=== PATIENT | female | born 1985 | race Caucasian/White ===

== ENCOUNTER 2016-08-28 17:20 | Emergency (ER) | payer OTHER | END 2016-08-28 19:25 | disposition left against medical advice (07) | LOC: D.ER 17:20 | DX: R51 Headache (principal) ==

== ENCOUNTER 2018-08-12 14:17 | Emergency (ER) | payer SELFPAY ==
[~2018-08-12] VITALS: Ht 149.9 cm; Wt 61.4 kg
[2018-08-12 14:38] VITALS: Ht 149.9 cm; Wt 61.4 kg
[2018-08-12 15:49] LABS: APPEARANCE CLEAR (CLEAR); BILIRUBIN NEGATIVE (NEGATIVE); COLOR YELLOW (YELLOW); GLUCOSE NEGATIVE (NEGATIVE); KETONE SMALL mg/dL (NEGATIVE); NITRITE NEGATIVE (NEGATIVE); PROTEIN NEGATIVE (NEGATIVE); UROBILINOGEN NORMAL (NORMAL)
[2018-08-12 15:50] LABS: BACTERIA MODERATE /hpf (NONE SEEN); EPITHELIAL CELLS 0-5 /hpf (0-5); RED CELLS - URINE 0-5 /hpf (0-5); WHITE CELLS - URINE 0-5 /hpf (0-5)
[2018-08-12 15:53] LABS: BASOPHILS 0.1 % (0-2); EOSINOPHILS 1.6 % (0-7); HEMATOCRIT 37.8 % (36.0-48.0); IMMATURE GRANULOCYTES 0.2 % (0-5); LYMPHOCYTES 25.8 % (15-50); MCH 30.1 pg (26.0-34.0); MCHC 34.4 g/dL (31.0-37.0); MCV 87.5 fL (80.0-100.0); MONOCYTES 5.7 % (2-11); NEUTROPHILS 66.6 % (40-80); PLATELET COUNT 244 10x3/uL (130-400); RBC 4.32 10x6/uL (4.00-5.40); RDW 12.8 % (11.5-14.5); WBC 8.7 10x3/uL (4.8-10.8)
[2018-08-12 16:01] LABS: ALBUMIN 3.8 g/dL (3.4-5.0); ALKALINE PHOSPHATASE 50 U/L (46-116); ALT (SGPT) 27 U/L (10-68); BILIRUBIN - TOTAL 0.21 mg/dL (0.2-1.3); CALC OSMOLALITY 272 mosm/kg (275-300); CALCIUM 8.6 mg/dL (8.5-10.1); CARBON DIOXIDE 24.5 mmol/L (21.0-32.0); CHLORIDE - SERUM 103 mmol/L (98-107); CREATININE - SERUM 0.5 mg/dL (0.6-1.3); GLUCOSE 89 mg/dL (74-106); POTASSIUM - SERUM 3.6 mmol/L (3.5-5.1); PROTEIN - SERUM 7.2 g/dL (6.4-8.2); SODIUM 138 mmol/L (136-145); UREA NITROGEN 6 mg/dL (7-18); eGFR NON AFRICAN AMERICAN > 90 mL/min (90-120)
[2018-08-12 16:28] LABS: HCG - QUANTITATIVE (MATERNAL) 124072 mIU/mL
[2018-08-12] MEDS ORDERED: ZOFRAN ODT4 MG/UDTAB PO (17:19)
[2018-08-12 18:01] VITALS: BP 102/67
== END 2018-08-12 18:00 | disposition home or self-care (01) ==
LOC: D.ER 14:17
PROVIDERS: Family Medicine
DX: O26.891 Other specified pregnancy related conditions, first trimester (principal); R10.32 Left lower quadrant pain; R10.31 Right lower quadrant pain; O21.8 Other vomiting complicating pregnancy; Z3A.09 9 weeks gestation of pregnancy

== ENCOUNTER → 2018-10-16 19:24 | Outpatient (CLI) | payer MEDICAID | END | disposition home or self-care (01) | LOC: D.LDO 19:24 | DX: O26.892 Other specified pregnancy related conditions, second trimester (principal); Z3A.18 18 weeks gestation of pregnancy ==

== ENCOUNTER → 2019-02-14 12:22 | Outpatient (CLI) | payer MEDICAID ==
[2018-08-12 14:38] VITALS: BMI 27.3
[~2019-02-14 12:22] MED LIST: BENADRYL25 MG PO; PERCOCET 5-3251 TAB PO; PRENAVITE1 TAB PO; ZOFRAN ODT4 MG/UDTAB PO
[2019-02-14 13:02] LABS: BASOPHILS 0.1 % (0-2); EOSINOPHILS 1.6 % (0-7); HEMATOCRIT 34.8 % (36.0-48.0); HEMOGLOBIN 11.8 g/dL (12-16); IMMATURE GRANULOCYTES 0.3 % (0-5); LYMPHOCYTES 22.1 % (15-50); MCH 29.6 pg (26.0-34.0); MCHC 33.9 g/dL (31.0-37.0); MCV 87.2 fL (80.0-100.0); MEAN PLATELET VOLUME 8.8 fL (7.4-10.4); MONOCYTES 5.1 % (2-11); NEUTROPHILS 70.8 % (40-80); PLATELET COUNT 208 10x3/uL (130-400); RBC 3.99 10x6/uL (4.00-5.40); RDW 13.1 % (11.5-14.5); WBC 7.7 10x3/uL (4.8-10.8)
[2019-02-14 13:14] LABS: APPEARANCE CLEAR (CLEAR); BILIRUBIN NEGATIVE (NEGATIVE); COLOR YELLOW (YELLOW); GLUCOSE NEGATIVE (NEGATIVE); KETONE MODERATE mg/dL (NEGATIVE); NITRITE NEGATIVE (NEGATIVE); PROTEIN NEGATIVE (NEGATIVE); SPECIFIC GRAVITY 1.015 (1.005-1.020); UROBILINOGEN NORMAL (NORMAL)
[2019-02-14 13:19] LABS: ALBUMIN 2.7 g/dL (3.4-5.0); ALKALINE PHOSPHATASE 117 U/L (46-116); ALT (SGPT) 15 U/L (10-68); CALC OSMOLALITY 274 mosm/kg (275-300); CALCIUM 7.9 mg/dL (8.5-10.1); CARBON DIOXIDE 24.1 mmol/L (21.0-32.0); CHLORIDE - SERUM 105 mmol/L (98-107); CREATININE - SERUM 0.6 mg/dL (0.6-1.3); GLUCOSE 100 mg/dL (74-106); POTASSIUM - SERUM 3.7 mmol/L (3.5-5.1); PROTEIN - SERUM 5.9 g/dL (6.4-8.2); SODIUM 139 mmol/L (136-145); UREA NITROGEN 5 mg/dL (7-18); eGFR NON AFRICAN AMERICAN > 90 mL/min (90-120)
[2019-02-14 14:51] LABS: APPEARANCE CLEAR (CLEAR); BILIRUBIN NEGATIVE (NEGATIVE); COLOR STRAW (YELLOW); GLUCOSE 500 mg/dL (NEGATIVE); KETONE NEGATIVE (NEGATIVE); NITRITE NEGATIVE (NEGATIVE); PROTEIN NEGATIVE (NEGATIVE); UROBILINOGEN NORMAL (NORMAL)
== END | disposition home or self-care (01) ==
LOC: D.LDO 12:22
PROVIDERS: ATTEND Obstetrics & Gynecology
DX: O26.90 Pregnancy related conditions, unspecified, unspecified trimester (principal)

== ENCOUNTER → 2019-03-07 10:57 | Outpatient (CLI) | payer MEDICAID ==
[2018-08-12 14:38] VITALS: BMI 27.3
== END | disposition home or self-care (01) ==
LOC: D.LDO 10:57
PROVIDERS: ATTEND Obstetrics & Gynecology
DX: O36.8130 Decreased fetal movements, third trimester, not applicable or unspecified (principal); Z3A.38 38 weeks gestation of pregnancy

== ENCOUNTER 2019-03-11 05:41 | Inpatient (IN) | payer MEDICAID ==
[2019-03-11] VITALS (14 sets, daily range): BP systolic 105–138; BP diastolic 57–82; Ht 149.9 cm; Wt 69.9 kg
[~2019-03-11] VITALS: Ht 149.9 cm; Wt 69.9 kg
[~2019-03-11 05:41] MED LIST changes: -BENADRYL25 MG PO; -PERCOCET 5-3251 TAB PO; -PRENAVITE1 TAB PO
[2019-03-11] MEDS ORDERED: PRENAVITE1 TAB PO (06:30)
[2019-03-11] MEDS ORDERED: BENADRYL25 MG PO (06:30)
[2019-03-11 06:53] LABS: HEMATOCRIT 39.7 % (36.0-48.0); HEMOGLOBIN 13.3 g/dL (12-16); MCH 29.7 pg (26.0-34.0); MCHC 33.5 g/dL (31.0-37.0); MCV 88.6 fL (80.0-100.0); MEAN PLATELET VOLUME 9.6 fL (7.4-10.4); RBC 4.48 10x6/uL (4.00-5.40); RDW 13.7 % (11.5-14.5); WBC 8.6 10x3/uL (4.8-10.8)
--- NOTE | 2019-03-11 08:14 | NUR ---
BABY BOY 0820 PLACENTA 0821 CORD BLOOD TAKEN
--- NOTE | 2019-03-11 09:46 | NUR ---
FUNDUS IS FIRM, MIDLINE. 2/U. GM PAD IN PLACE. NO CLOTS PRESENT. WILL CONTINUE TO MONITOR.
--- NOTE | 2019-03-11 10:15 | NUR ---
RECEIVED PT TO LD #[address] POST REPE[address] SECTION BY DR. PARKER, PT HAS LOW TRANSVERSE INCISION, LARGE WHITE DRESSING, C/D/I. ABDOMEN PALPATES SOFT. FUNDUS FIRM, U/1, SMALL RUBRA LOCHIA, NO CLOTS. PERIPADS/TOWELS/CHUX CHANGED. WARE CATH IN PLACE, DRAINING LIGHT YELLOW URINE. 200 CC'S NOTED. SCD'S APPLIED. ICE PACK APPLIED OVER GOWN TO INCISION. PT C/O NAUSEA, REPORTED BY NAYLA, RECOVERY ROOM NURSE. SEE EMAR FOR ALL MEDS ADM BY THIS RN. IV 20 UNITS PITOCIN INFUSING AT MODERATE RATE, OFF PUMP, SET ON PUMP AT 125 ML/HR. PLAN OF CARE DISCUSSED WITH PT AND FAMILY. SRUP X2, CALL LIGHT AND PHONE WITHIN REACH.
--- NOTE | 2019-03-11 10:30 | NUR ---
SMALL RUBRA LOCHIA, NO CLOTS NOTED. FUNDUS FIRM, U/1, MIDLINE.
--- NOTE | 2019-03-11 11:20 | NUR ---
NSY IN ROOM ASSISTING PT WITH . PT REPORTS PAIN TO INCISIONAL AREA/ABD CRAMPING 6/10. DENIES OTHER NEEDS AT THIS TIME. SRUPX2, CL/PHONE WITHIN REACH.
--- NOTE | 2019-03-11 12:00 | NUR ---
PT SITTING UP IN BED SIDERAILS X2 CALL LIGHT IN REACH. PT IN STABLE CONDITION AT THIS TIME. PT STATES SHE HAS ABD. PAIN 5/10. PT ENCOURAGED TO PUSH BUTTON FOR RIB MATCHER AND FITTER PAIN MED NEEDED. PT STATES PAIN IS TOLERABLE AT THIS TIME.
--- NOTE | 2019-03-11 13:30 | NUR ---
TO PT'S ROOM, PT IS RESTING ON HER BACK WITH HOB ELEVATED 30 DEGREES. ABDOMEN PALPATES SOFT, FUNDUS FIRM, U/1, SCANT RUBRA LOCHIA, NO CLOTS EXPELLED. PERICARE DONE WITH WARM WET WASHCLOTHS, PERITOWELS/CHUX CHANGED. PT TO LEFT TILT. INCENTIVE SPIROMETER EXPLAINED TO PT, WITH RETURN DEMONSTRATION X 3, ALONG WITH COUGHING AND DEEP BREATHING EXERCISES X 3 BY PT. PT C/O BEING A LITTLE NAUSEATED SINCE THIS AM. PT REPORTS SHE IS AFRAID TO PUSH HER DILUDID WOOD TYPE CUTTER BUTTON FOR FEAR IT WILL MAKE HER MORE NAUSEATED. PAIN CONTROL/MEDICATION EXPLAINED TO PT. PT PUSHES WOOD TYPE CUTTER BUTTON FOR PAIN CONTROL. SEE EMAR FOR ALL MEDS ADM BY THIS RN. PT IS SIPPING ON BROTH AND ATTEMPTING TO EAT JELLO. SIG OTHER AT BEDSIDE. SRUP X2, CALL LIGHT AND PHONE WITHIN REACH.
[2019-03-11 15:43] LABS: BASOPHILS 0.1 % (0-2); EOSINOPHILS 0.1 % (0-7); HEMATOCRIT 38.1 % (36.0-48.0); IMMATURE GRANULOCYTES 0.3 % (0-5); LYMPHOCYTES 8.2 % (15-50); MCH 29.5 pg (26.0-34.0); MCHC 34.1 g/dL (31.0-37.0); MEAN PLATELET VOLUME 9.9 fL (7.4-10.4); MONOCYTES 5.3 % (2-11); PLATELET COUNT 184 10x3/uL (130-400); RDW 13.5 % (11.5-14.5)
[2019-03-11 15:57] LABS: MCV 86.6 fL (80.0-100.0); WBC 17.6 10x3/uL (4.8-10.8)
--- NOTE | 2019-03-11 16:15 | NUR ---
PT SITTING UP IN BED AT THIS TIME. BR UP X2 CALL LIGHT WITHIN REACH. PT IN STABLE CONDITION AT THIS TIME.
--- NOTE | 2019-03-11 18:10 | NUR ---
TO PT'S ROOM, PERICARE DONE WITH WARM WET WASHCLOTHS, PERITOWELS/CHUX/PADS CHANGED. SMALL RUBRA LOCHIA, NO CLOTS, NO LABIAL SWELLING NOTED. ABDOMEN CONTINUES TO PALPATE SOFT, DRESSING OVER INCISION REMAINS C/D/I, NEW ICE PACK PLACED OVER GOWN. PT STATES SHE IS DROWSY, PT REPORTS PAIN IS TOLERABLE, AND THAT SHE IS READY TO EAT REAL FOOD. PT DENIES NAUSEA AT THIS TIME. SRUP X2, CL/PHONE WITHIN REACH. PT WANTS TO GO TO SLEEP.
--- NOTE | 2019-03-11 20:00 | NUR ---
SHIFT ASSESSMENT ALSO COMPLETED BY THIS RN AT THIS. THIS RN CONCURS WITH SHIFT ASSESSMENT CHARTED BY Demond RICHARDS RN.
--- NOTE | 2019-03-11 20:00 | NUR ---
SHIFT ASSESSMENT COMPLETED PER FLOW SHEET. VSS. FUNDUS FIRM MIDLINE, UU WITH SCANT RUBRA LOCHIA, NO CLOTS NOTED. C/O INCISIONAL PAIN RATING IT AT 5/10. TORADOL 30MG GIVEN IVP PER MD ORDERS. EDUCATED ON TORADOL. BBS CLEAR AND EQUAL BILATERALLY. BS PRESENT AND ACTIVE X4 QUADRANTS. LOWER TRANSVERSE ABD INCISION COVERED WITH DRESSING C/D/I. FC NOTED AND DRAINING YELLOW URINE TO BEDSIDE DRAINAGE. TRACE EDEDMA TO BLE. SCDS ON BLE. POC DISCUSSED WITH AND SPOUSE. VERBALIZED UNDERSTANDING. UPDATED ON . BED IN LOW POSITION, SRU X2, CALL LIGHT AND PHONE IN REACH. RIGHT HAND PIV INFUSING NS WITH 2O PIT. NO REDNESS OR EDEMA NOTED.
--- NOTE | 2019-03-11 20:25 | NUR ---
RT HAND PIV SL, FLUSHES WITHOUT DIFFICULTY, NO S/S OF INFILTRATION NOTED. WARE D/C'D WITH 250 MLS YELLOW URINE NOTED IN UROMETER. PT UP WITH STANDBY ASSIST PER HER REQUEST AND TO BR. KHALIDA DONE PER PT. PADS AND PANTIES PROVIDED. SCANT LOCHIA NOTED, SEROSANGUINEOUS IN COLOR, NO CLOTS. GOWN CHANGED. PT AMBULATORY BACK TO BED, STEADY GAIT NOTED. DENIES DIZZINESS AND NAUSEA AT THIS TIME. REQUESTING TO EAT AT THIS TIME, STATES THAT SHE HAS [place], ENCOURAGED TO EAT LIBRARY H[employer]IAN FOOD AND OFFERED CHICHEN NOODLE SOUP PT AGREEABLE. NO CHICKEN NOODLE ON UNIT, UPSET WELDING MACHINE OPERATOR NOTIFIED AND WILL BRING TO UNIT. CREAM OF CHICKEN AVAILABLE PT NOTIFIED AND REQUESTED CREAM OF CHICKEN AT THIS TIME, PROVIDED PER REQUEST.
--- NOTE | 2019-03-11 20:46 | NUR ---
PAIN NOW 07/25, REPORTS THAT TORADOL RELIEVED PAIN WELL. DENIES NEEDS AT THIS TIME. BED IN LOW POSITION WITH SRUPX2. CALL LIGHT AND PHONE WITHIN REACH. WILL CONTINUE TO MONITOR.
--- NOTE | 2019-03-11 21:10 | NUR ---
CHICKEN NOODLE SOUP AND CRACKERS PROVIDED TO PT PER HER REQUEST. NO OTHER REQUEST MADE AT THIS TIME. BED IN LOW POSITION. SRU X2. CALL LIGHT AND PHONE WITHIN PTS REACH. INSTRUCTED TO NOTIFY NURSE WITH ANY PROBLEMS, NEEDS, OR CONCERNS. VERBALIZED UNDERSTANDING.
--- NOTE | 2019-03-11 22:41 | NUR ---
PT REPORTS FEELING NAUSEATED. SL TO RIGHT HAND FLUSHED WITHOUT DIFFICULTY BEFORE AND AFTER GIVING ZOFRAN 4MG SIVP PER MD ORDER. PT ALSO REPORTS AT THIS TIME THAT SHE IS ITCHING ON HER FACE AND BACK. SHE REPORTS THAT IT HAS GOTTEN WORSE THIS EVENING SINCE RIGHT BEFORE HER DILAUDID INSTRUMENT MAKER AND REPAIRER WAS DC'D AT 1999. PT DENIES WANTING ANY INTERVENTION FOR THE ITCHING. SHE DENIES HAVING ANY DIFFICULTY BREATHING OR SOB. WILL PLACE CALL TO ONCALL MD WITH INFORMATION FOR ANY FURTHER ORDERS. INSTRUCTED PT TO NOTIFY NURSE WITH ANY OTHER PROBLEMS, NEEDS, OR CONCERNS. VERBALIZED UNDERSTANDING.
--- NOTE | 2019-03-11 23:05 | NUR ---
PT UP TO BATHROOM WITH ASSISTANCE. VOIDED 300CC OF CLEAR YELLOW URINE WITH A SMALL AMOUNT OF LOCHIA NOTED. PT BACK TO BED. TOLERATED WELL. DENIES ANY OTHER NEEDS. INSTUCTED PT TO NOTIFY NURSE WITH ANY PROBLEMS, NEEDS, OR CONCERNS. VERBALIZED UNDERSTANDING.
--- NOTE | 2019-03-11 23:22 | NUR ---
PT RESTING IN BED. VSS. UP TO BATHROOM WITH ASSISTANCE. VOIDED 350CC CLEAR YELLOW YELLOW URINE WITH A SMALL AMOUNT OF LOCHIA NOTED IN SPECIPAN. NO OTHER REQUEST MADE. BED IN LOW POSITION. SRU X2, CALL LIGHT AND PHONE WITHIN PTS REACH.
--- NOTE | 2019-03-11 23:30 | NUR ---
AMBULATING TO NBN USING WC FOR ASSISTANCE. STEADY GAIT NOTED. RN AND SPOUSE AT SIDE. PT INSTRUCTED TO NOTIFY NURSE WITH ANY PROBLEMS, NEEDS, OR CONCERNS.
--- NOTE | 2019-03-11 23:50 | NUR ---
PT AND SPOUSE BACK FROM N. REPORTS THAT SHE WILL BE ABLE TO BREASTFEED INFANT AT NEXT FEEING. PT REPORTS THAT HER NAUSEA IS BETTER AND IS REQUESTING SOUP AND CRACKERS. LINENS CHANGED AT THIS TIME.
--- NOTE | 2019-03-12 | NUR ---
PT RESTING IN BED. SOUP AND CRACKERS PROVIDED PER HER REQUEST. FRESH ICE PACK PLACED TO ADB INCISION. BED IN LOW POSITION. SRU X2. CALL LIGHT AND PHONE WITHIN PTS REACH. INSTRUCTED PT TO NOTIFY NURSE WITH ANY PROBLEMS, NEEDS, OR CONCERNS. VERBALIZED UNDERSTANDING.
--- NOTE | 2019-03-12 00:17 | NUR ---
PT RESTING IN BED.C/O INCISIONAL PAIN RATING IT AT 6/10. PERCOCET 10/325 X1 TABLET GIVEN PER PT REQUEST. DENIES ANY OTHER NEEDS AT THIS TIME. BED IN LOW POSITION, SRU X2. CALL LIGHT AND PHONE WITHIN PTS REACH. INSTRUCTED PT TO NOTIFY NURSE WITH ANY PROBLEMS, NEEDS, OR CONCERNS. VERBALIZED UNDERSTANDING.
--- NOTE | 2019-03-12 00:39 | NUR ---
SPOKE WITH DR. GUEVARA REGARDING PTS C/O GAS PAIN AND ITCHHING. INFORMED MD THAT PT USED HER DILAUDID POCKET CUTTER SEVERAL TIMES BEFORE BEING IT WAS DC'D AT 2024 AND THAT SHE DID NOT REPORT THE ITCHING UNTIL LATER IN THE EVENING. INFORMED HER THAT THE PT DENIES DIFFICULTY BREATHING AND SOB. NEW ORDERS RECEIVED FOR SIMETHICONE PO BID AND BENADRYL 25MG PO X1 DOSE PRN.
--- NOTE | 2019-03-12 01:10 | NUR ---
RESTING QUIETLY WITH EYES CLOSED. RESP REGULAR AND UNLABORED, NO S/S OF DISTRESS NOTED. BED IN LOW POSITION WITH SRUP X2. CALL LIGHT AND PHONE WITHIN REACH. WILL CONTINUE TO MONITOR. FOB RESTING ON COUCH AT BEDSIDE.
--- NOTE | 2019-03-12 01:15 | NUR ---
PT RESTING IN BED COMFORTABLY WITH LIGHTS OFF. NO DISTRESS NOTED. BED IN LOW POSITION, SRU X2, CALL LIGHT AND PHONE WITHIN PTS REACH.
--- NOTE | 2019-03-12 02:24 | NUR ---
PT RESTING IN BED BABY. C/O INCISIONAL PAIN RATING IT AT 5/10. MOTRIN 600MG GIVEN PER PT REQUEST. WATER PITCHER FILLED. NO OTHER REQUEST MADE AT THIS TIME. PT INSTRUCTED TO NOTIFY NURSE WITH ANY PROBLEMS, NEEDS, OR CONCERNS. VERBALIZED UNDERSTANDING. BED IN LOW POSITION, SRU X2, CALL LIGHT AND PHONE WITHIN PTS REACH.
--- NOTE | 2019-03-12 02:40 | NUR ---
MED DROPPED AND WASTED. MED THAT WAS SCANNED AT 0224 DROPPED AND WASTED WAS REPULLED AND ADMINISTERED AT THIS TIME.
[2019-03-12 04:00] VITALS: BP 92/52
--- NOTE | 2019-03-12 04:00 | NUR ---
PT RESTING COMFORTABLY IN BED. VSS. PT DENIES ANY COMPLAINTS. WATER PITCHER FILLED. ICE PACK FILLED AND PLACED TO PTS ABD INCISION. PT INSTRUCTED TO NOTIFY NURSE WITH ANY PROBLEMS, NEEDS, OR CONCERNS. VERBALIZED UNDERSTANDING. BED IN LOW POSITION, SRU X2, CALL LIGHT AND PHONE WITHIN PTS REACH.
[2019-03-12 05:02] LABS: BASOPHILS 0.1 % (0-2); EOSINOPHILS 1.4 % (0-7); HEMATOCRIT 36.2 % (36.0-48.0); HEMOGLOBIN 11.9 g/dL (12-16); IMMATURE GRANULOCYTES 0.3 % (0-5); LYMPHOCYTES 20.3 % (15-50); MCH 29.2 pg (26.0-34.0); MCHC 32.9 g/dL (31.0-37.0); MCV 88.9 fL (80.0-100.0); MEAN PLATELET VOLUME 9.4 fL (7.4-10.4); NEUTROPHILS 70.9 % (40-80); PLATELET COUNT 192 10x3/uL (130-400); RBC 4.07 10x6/uL (4.00-5.40); RDW 13.6 % (11.5-14.5); WBC 11.8 10x3/uL (4.8-10.8)
--- NOTE | 2019-03-12 05:35 | NUR ---
PT RESTING IN BED. C/O INCISIONAL AND "GAS" PAIN. PERCOCET 10/325 X1 TABLET GIVEN PER HER REQUEST. FER CRACKERS AND PEANUT BUTTER ALSO PROVIDED. RIGHT HAND SL FLUSHED WITHOUT DIFFICULTY. NO REDNESS OR EDEMA NOTED TO SITE. INFANT BROUGHT TO MOM AND PLACED TO LEFT BREAST FOR . MOM BONDING WELL WITH . PT INSTRUCTED TO NOTIFY NURSE WITH ANY PROBLEMS, NEEDS, OR CONCERNS. VERBALIZED UNDERSTANDING. BED IN LOW POSITION, SRU X2, CALL LIGHT AND PHONE WITHIN PTS REACH.
[2019-03-12 06:09] LABS: RAPID PLASMA REAGIN Non Reactive (Non Reactive)
--- NOTE | 2019-03-12 06:24 | NUR ---
PT RESTING COMFORTABLY IN BED HOLDING . PT REPORTS THAT HER PAIN IS BETTER RATING IT AT 3/10. WATER PITCHER FILLED. NO OTHER REQUEST MADE. INSTRUCTED PT TO NOTIFY NURSE WITH ANY PROBLEMS, NEEDS, OR CONCERNS. VERBALIZED UNDERSTANDING. BED IN LOW POSITION, SRU X2, CALL LIGHT AND PHONE WITHIN PTS REACH.
--- NOTE | 2019-03-12 07:55 | NUR ---
PT IN HIGH FOWLERS POSITION INFANT. PT INSTRUCTED TO CALL OUT AFTER NURSING IS COMPLETE FOR ASSESSMENT. PT VERBALIZES UNDERSTANDING AND DENIES FURTHER NEEDS AT THIS TIME.
--- NOTE | 2019-03-12 08:30 | NUR ---
PT IN HIGH FOWLERS POSITION HOLDING . NBN TO ROOM, TO NURSERY FOR MD ASSESS. PHYSICAL ASSESSMENT DONE, SEE SHIFT ASSESSMENT. SALINE LOCK IN RIGHT HAND. SITE C/D/I. LUNGS CLEAR TO AUSCULTATION IN ALL DELA CRUZ; BS ACTIVE X 4. PT DENIES PASSING GAS OR BM SINCE PROCEDURE, BUT CONTINUES TO DENY N/V. ABD SOFT TO PALPATION AND NOT DISTENDED. FF/U/2 AND MIDLINE. ABD DRESSING IN PLACE, C/D/I. PT ENCOURAGED TO SHOWER AT SOME POINT TODAY AND ABD DRESSING WILL BE REMOVED AT THAT TIME. PT VERBALIZES UNDERSTANDING. SCDS NOT BEING USED AT THIS TIME. PT STATES, " I DONT WANT TO WEAR THEM BECAUSE I AM GETTING UP ALOT TO PEE." PT RATING PAIN 5/10 IN ABDOMEN AND REQUEST MEDICATION. MOTRIN 600MG GIVEN PO. PT DENIES FURTHER NEEDS AT THIS TIME.
[2019-03-12 08:34] VITALS: BP 97/57
--- NOTE | 2019-03-12 10:15 | NUR ---
DR GUEVARA IN ROOM ASSESSING PT AND DISCUSSING DISCHARGE PLANNING. PT VERBALIZED DESIRE TO DC TODAY. DR GUEVARA EXPLAINING THAT SHE NEEDS TO STAY FOR ONE MORE DAY. PT VERB. UNDERSTANDING. ABD DRESSING REMOVED PER MD. PFANNENSTIEL INCISION C/D/I WITH FAUZIA. SL DCD WITH CATH TIP INTACT. PT DENIES FURTHER NEEDS AT THIS TIME.
--- NOTE | 2019-03-12 10:55 | NUR ---
PT AMBULATING IN HALLWAY WITH FOB
--- NOTE | 2019-03-12 12:44 | NUR ---
PT AMBULATING IN ROOM AND CURRENTLY CHANGING DIAPER. DENIES NEEDS AT THIS TIME.
--- NOTE | 2019-03-12 14:00 | NUR ---
PT IN HIGH FOWLERS POSITION EATING A BANANA. PT RATES PAIN 5/10 AND REQUESTS MOTRIN WHEN IT IS TIME AGAIN.
--- NOTE | 2019-03-12 14:32 | NUR ---
PT AMBULATING IN NURSERY WITH INFANT. RATES PAIN 5/10 AND REQUESTS MOTRIN. MOTRIN 600MG GIVEN PO. PT BACK TO ROOM AND DENIES FURTHER NEEDS.
[2019-03-12 16:18] VITALS: BP 108/65
--- NOTE | 2019-03-12 16:20 | NUR ---
PT IN LEFT LATERAL POSITION RESTING WITH EYES CLOSED. RESP. EVEN AND UNLABORED. O2 VIA NC IN PLACE AT 2L/MIN
--- NOTE | 2019-03-12 16:25 | NUR ---
REPORT OF PT COMPLAINT OF PAIN AND REQUESTING ALTERNATE PAIN MEDICATION OPTION CALLED TO DR GUEVARA. GIVES ORDER THAT PT MAY TAKE TORADOL 10MG PO Q 6HRS PRN INSTEAD OF THE MOTRIN CURRENTLY ORDERED BUT HAS TO WAIT UNTIL IT HAS BEEN 6HRS FROM PREVIOUS MOTRIN ADMINISTRATION. STATES THAT PT MAY ALSO OPT TO TAKE HALF OF THE PERCOCET 10/325MG PO TO SEE IF DOSE CHANGE WOULD BE BENEFICIAL.
--- NOTE | 2019-03-12 18:00 | NUR ---
TOWELS AND WASH CLOTHS PROVIDED AND PT DISCUSSING GETTING UP TO SHOWER. PT RATES PAIN 4/10 AND STATES THAT THE HALF OF THE PERCOCET 10/325MG WORKS BETTER AND SHE WOULD LIKE TO CONTINUE THAT IF POSSIBLE.
--- NOTE | 2019-03-12 19:25 | NUR ---
PM ROUNDS MADE, INFORMED PT THAT I WILL BE BACK SHORTLY TO DO ASSESSMENT, PT VERBALIZES UNDERSTANDING, DENIES NEEDS AT THIS TIME, IN OPEN CRIB CART AND FOB AT BEDSIDE
[2019-03-12 20:00] VITALS: BP 110/69
--- NOTE | 2019-03-12 20:00 | NUR ---
ASSESSMENT PER FLOW SHEET, VS OBTAINED, FF, ML, U/1, PT REPORTS SCANT VAG BLEEDING WITH NO CLOTS, BIKINI INC WITH FAUZIA CDI WITH NO DRAINAGE NOTED, GM PAD OVER INC FOR COMFORT AND MOISTURE CONTROL, PT REPORTS FLATUS, NO BM AND VOIDING WITH NO DIFFICULTY, POC DISCUSSED WITH PT REGARDING MOTRIN AND TORADOL, PT VERBALIZES UNDERSTANDING, DENIES QUESTIONS, PT REPORTS THAT SHE WANTS TO MAKE SURE SHE IS DISCHARGED TOMORROW AND THAT SHE WOULD ALSO LIKE A BINDER, INFORMED PT THAT I WILL LET DAY SHIFT KNOW, PT DENIES FURTHER NEEDS, FOB HOLDING INFANT, DINNER TRAY REMOVED
--- NOTE | 2019-03-12 20:32 | NUR ---
ADM TORADOL PO PER MD ORDERS, SEE EMAR
--- NOTE | 2019-03-12 21:05 | NUR ---
PT AMB, GAIT STEADY, IN NUGENT, WITH INFANT IN OPEN CRIB CART AND FOB AT SIDE
--- NOTE | 2019-03-12 21:15 | NUR ---
PT BACK TO ROOM
--- NOTE | 2019-03-12 21:18 | NUR ---
PT , ADM MYLICON PER MD ORDERS, SEE EMAR, PT DENIES NEEDS AT THIS TIME, FOB AT BEDSIDE
--- NOTE | 2019-03-12 22:28 | NUR ---
PT SITTING UP IN BED HOLDING , DENIES NEEDS AT THIS TIME, FOB AT BEDSIDE
--- NOTE | 2019-03-13 00:23 | NUR ---
PT RESTING WITH EYES CLOSED, RESP QUIET, NO DISTRESS NOTED, LEFT UNDISTURBED AT THIS TIME, IN OPEN CRIB CART AT BEDSIDE, FOB ASLEEP ON COUCH
[2019-03-13 02:34] VITALS: BP 112/56
--- NOTE | 2019-03-13 02:34 | NUR ---
PT AWAKE, INFANT IN OPEN CRIB CART AT BEDSIDE, VS OBTAINED, ADM TORADOL PER MD ORDERS, SEE EMAR, PT DENIES NEED FOR PERCOCET AT THIS TIME, DENIES FURTHER NEEDS, FOB ASLEEP ON COUCH
--- NOTE | 2019-03-13 03:05 | NUR ---
INFANT TO NSY VIA OPEN CRIB CART PER THIS RN
--- NOTE | 2019-03-13 04:06 | NUR ---
INFANT TO ROOM VIA OPEN CRIB CART PER THIS RN, BANDS CHECKED, PT DENIES NEEDS OR PAIN AT THIS TIME, FOB ASLEEP ON COUCH
--- NOTE | 2019-03-13 05:41 | NUR ---
PT RESTING WITH EYES CLOSED, RESP QUIET, NO DISTRESS NOTED, LEFT UNDISTURBED AT THIS TIME, IN OPEN CRIB CART AT BEDSIDE, FOB ASLEEP ON COUCH
[2019-03-13 08:35] VITALS: BP 113/76
--- NOTE | 2019-03-13 09:45 | NUR ---
DR. GUEVARA ON UNIT, TO MD UZMA SPEAKING WITH PT REGARDING PLAN OF CARE. VERBAL ORDER RECEIVED TO DISCHARGE HOME WITH , TO KEEP FOLLOW UP APPT AT [facility].
--- NOTE | 2019-03-13 10:00 | NUR ---
DR. GUEVARA AT DESK, DISCHARGE ORDER CONFIRMED, PT TO KEEP NEXT SCHEDULED APPT IN THE CLINIC 03/17/19 @ 10:[address] PARKER.
[2019-03-13] MEDS ORDERED: PERCOCET 5-3251 TAB PO (10:43)
--- NOTE | 2019-03-13 11:15 | NUR ---
DISCHARGE INSTRUCTIONS EXPLAINED TO PT, WITH COPIES PROVIDED, ALONG WITH PRESCRIPTION FOR PERCOCET 5 MG. PT DENIES ALL QUESTIONS, OR NEEDS AT THIS TIME. PT IS SITTING UP IN THE BED, HOLDING , AWAITING 'S DISCHARGE.
--- NOTE | 2019-03-13 14:34 | NUR ---
PT TAKEN OUT BY WHEELCHAIR, IN STABLE CONDITION, WITH IN CARSEAT, TO PRIVATE CAR BY Nazia HINTON RN.
--- NOTE | 2019-03-30 10:40 | OP ---
PATIENT NAME: CARIDAD MENDOZA MEDICAL RECORD: [id number] :87 [facility] ADMISSION DATE:03/11/19 SURGEON: SALVADOR HUTCIHNSON MD DATE OF OPERATION: 03/11/2019 PREOPERATIVE DIAGNOSES: 1. Term intrauterine at 39 weeks. 2. History of previous section. 3. The patient desires permanent sterility. POSTOPERATIVE DIAGNOSES: 1. Term intrauterine at 39 weeks. 2. History of previous section. 3. The patient desires permanent sterility. PROCEDURE: Repeat low transverse section and tubal ligation via modified Uchida procedure. SURGEON: Salvador Hutchnison MD ESTIMATED BLOOD LOSS: 1000 cc. ANESTHESIA: Regional via spinal. INTRAVENOUS FLUIDS: Per anesthesia records. FINDINGS: 1. Viable male , Apgars 9 at 1 and 9 at 5. 2. Placenta delivered manually intact, 3-vessel cord noted. 3. Normal adnexa bilaterally. SPECIMENS: Included placenta, cord for gases, and bilateral partial tubal segments. COMPLICATIONS: None apparent. PROCEDURE IN DETAIL: The patient was taken to the operating room where regional anesthesia was achieved without difficulty. The patient was then prepped and draped in normal sterile fashion in the dorsal supine position. SCDs were on and functioning normally. A Hair catheter had been placed and was draining freely. Following prep and drape, a repeat Pfannenstiel skin incision was made and extended downward to the underlying subcutaneous fat to the level of the fascia. The fascia was then excised in the midline and the fascial incision was extended bilaterally using the Chou scissors. Superior and inferior aspects of the fascial incision were then grasped with Marielena clamps times 2, tented upward, and sharply dissected from the underlying rectus muscle using the Bovie cautery and the Chou scissors. The rectus muscles were then bluntly in the midline. The peritoneum was entered sharply at the superior aspect of the incision using the Metzenbaum scissors. Peritoneal incision was then extended laterally and inferiorly using the Metzenbaum scissors with careful attention paid to the bladder. A bladder blade was then placed into the pelvis and a bladder flap created by excising the anterior leaf of the broad ligament across the lower uterine segment using the Metzenbaum scissors. A low transverse incision was made with the scalpel and extended superiorly and inferiorly using the Pelosi method. The head was found to be extended and OPERATIVE REPORT [id number] CARIDAD MENDOZA a vacuum was placed on the occiput, 1 application, no pop offs, application time approximately 5-7 seconds, correction to head flexion with immediate delivery of the head without traction placed on the neck. No evidence of trauma at the vacuum site. The vertex was delivered followed by the body atraumatically. was bulb suctioned upon delivery. The cord was clamped times 2, cut, and the was handed to the awaiting nursery team. Cord was obtained for gases and the placenta was then removed manually intact, a 3-vessel cord was noted. The uterus was then exteriorized, cleared of all clots and debris and vigorously massaged and a good uterine tone was noted. At this point, the uterine incision was repaired with 0 Vicryl in a running locked fashion times 2 with good hemostasis noted. Attention was then turned to the bilateral fallopian tubes, which were grasped in their midsection using a Jaun clamp. A defect was made in the mesosalpinx using the Bovie cautery and curved Anjana clamps were placed across the 2 areas of the midsection of the tube. The tube was then excised and the proximal and distal tubal stumps were then first free tied with 2-0 Vicryl and then distally suture ligated. Both tubal ligation sites were found to be hemostatic. Posterior cul-de-sac was then thoroughly irrigated and the uterus was returned to the pelvis. Anterior cul-de-sac was then thoroughly irrigated and the uterine incision was found to be hemostatic. Counts were correct times 2 for sponges, instruments and needles. The fascia was then repaired with 0 loop PDS times 1 and the skin repaired with chandu. The patient tolerated procedure well, was transferred to postanesthesia recovery stable without incident. TRANSINT:[id number] Voice Confirmation ID: [id number] DOCUMENT ID: [id number] SALVADOR HUTCHINSON MD at 1040 CC: [id number] DICTATION DATE: 03/25/19 1222 NET DEVELOPER PROGRAMMER: 03/25/19 1242 DIS IN 03/13/19 [id number] [place] [address]
== END 2019-03-13 16:00 | disposition home or self-care (01) | DRG 785 ==
LOC: D.LD 05:41
PROVIDERS: ADMIT Obstetrics & Gynecology; ATTEND Obstetrics & Gynecology
PROC: 10D00Z1 Extraction of Products of Conception, Low, Open Approach (ICD-10-PCS; principal; 2019-03-11 07:30)
PROC: 0UB70ZZ Excision of Bilateral Fallopian Tubes, Open Approach (ICD-10-PCS; 2019-03-11 07:30)
DX: O34.211 Maternal care for low transverse scar from previous cesarean delivery (principal); Z3A.39 39 weeks gestation of pregnancy; Z37.0 Single live birth; Z30.2 Encounter for sterilization; Z30.09 Encounter for other general counseling and advice on contraception; D72.829 Elevated white blood cell count, unspecified; O75.89 Other specified complications of labor and delivery